=== PATIENT | male | born 1960 | race Hispanic/Latino ===

== ENCOUNTER 2021-11-25 17:26 | Emergency (ER) | payer OTHER ==
[2021-11-25] MEDS ORDERED: Xylocaine 1% w/ Epi 1:100K 10 ML VIAL ONE (17:57)
[2021-11-25] MEDS ORDERED: Morphine 4 MG/ML VIAL ONE (18:42)
[2021-11-25] MEDS ORDERED: Ketorolac Tromethamine 30 MG/ML VIAL ONE (18:43)
== END 2021-11-25 20:15 | disposition home or self-care (01) ==
LOC: ERS 17:26
DX: S06.0X1A Concussion with loss of consciousness of 30 minutes or less, initial encounter (principal); S00.83XA Contusion of other part of head, initial encounter; S51.012A Laceration without foreign body of left elbow, initial encounter; E11.9 Type 2 diabetes mellitus without complications; I10 Essential (primary) hypertension; E78.00 Pure hypercholesterolemia, unspecified; V28.4XXA Motorcycle driver injured in noncollision transport accident in traffic accident, initial encounter; Y93.55 Activity, bike riding
CPT/HCPCS: 12001; 70450; 70486; 71045; 72125; 96374; 96375; G0390; J1885; J2270